=== PATIENT | male | born 2000 | race Caucasian/White ===

== ENCOUNTER 2022-07-06 18:25 | Emergency (ER) | payer BC ==
[2022-07-06] MEDS ORDERED: Nitroglycerin 0.4 MG TAB 1 EACH ONE (19:09)
[2022-07-06] MEDS ORDERED: Ketorolac Tromethamine 30 MG/ML VIAL ONE (19:38)
== END 2022-07-06 20:15 | disposition home or self-care (01) ==
LOC: ERS 18:25
DX: T18.128A Food in esophagus causing other injury, initial encounter (principal)
CPT/HCPCS: 96372; 99283; J1610; J1885